=== PATIENT | female | born 1950 | race Caucasian/White ===

== ENCOUNTER 2017-03-03 08:53 | Outpatient (CLI) | payer BC | END 2017-03-03 08:54 | disposition home or self-care (01) | LOC: BICMAMMO 08:53 | PROVIDERS: ATTEND Family Medicine | DX: Z12.31 Encounter for screening mammogram for malignant neoplasm of breast (principal); Z80.3 Family history of malignant neoplasm of breast; R92.1 Mammographic calcification found on diagnostic imaging of breast | CPT/HCPCS: 77063 ==

== ENCOUNTER 2017-08-05 21:28 | Emergency (ER) | payer MEDICARE, BC ==
[2017-08-05 22:06] LABS: #Eosinphils 0.1 thou/uL (0.0-0.7); #Lymphocytes 0.4 thou/uL (1.20-3.40); #Monocytes 0.3 thou/uL (0.11-0.59); #Neutrophils 6.1 thou/uL (1.40-6.50); %Basophils 0.7 % (0.0-1.0); %Lymphocytes 5.2 % (21.0-51.0); %Monocytes 4.8 % (0.0-10.0); %Neutrophils 88.3 % (42.0-75.0); Hemoglobin 12.6 g/dL (12.0-16.0); Mean Corpuscular HGB CONC 35.7 g/dL (32.0-36.0); Mean Corpuscular Hemoglobin 29.9 pg (27.0-31.0); Mean Corpuscular Volume 83.6 fl (81.0-99.0); Mean Platelet Volume 8.1 fL (7.4-10.4); Platelet Count 128 thou/uL (130-400); RBC Distribution Width 11.1 % (11.5-14.5); Red Blood Cell (RBC) Count 4.21 mill/uL (4.20-5.40)
[2017-08-05 22:20] LABS: Bilirubin Negative (Negative); Blood, Urine Negative (Negative); Clarity Turbid (Clear); Glucose, Urine (Dipstick) 100 mg/dL (Negative); Leukocyte Moderate (Negative); Nitrite Positive (Negative); Protein, Urine (Dipstick) Negative (Neg-Trace); Urobilinogen 0.2 mg/dL (0.2-1.0); pH, Urine 5.5 (5.0-9.0)
[2017-08-05 22:21] LABS: ALT (SGPT) 31 U/L (8-55); AST (SGOT) 25 U/L (5-34); Albumin 4.2 g/dL (3.4-4.8); Alkaline Phosphatase 77 U/L (40-150); Anion Gap 16 mmol/L (10-20); BUN (Urea Nitrogen) 26 mg/dL (9.8-20.1); Bilirubin, Total 0.5 mg/dL (0.2-1.2); Calc. Creatinine Clearance 0 mL/min (70-130); Calcium 9.3 mg/dL (7.8-10.44); Carbon Dioxide 21 mmol/L (23-31); Chloride 104 mmol/L (98-107); Estimated GFR-MDRD 61; Globulin 2.7 g/dL (2.4-3.5); Glucose 234 mg/dL (80-115); Lipase 20 U/L (8-78); Potassium 3.5 mmol/L (3.5-5.1); Protein, Total 6.9 g/dL (6.0-8.3); Sodium 137 mmol/L (136-145)
--- NOTE | 2017-08-05 22:25 | CT ---
CT ABDOMEN AND PELVIS WITHOUT CONTRAST: 08/05/17 HISTORY: Nausea and vomiting. COMPARISON: None. FINDINGS: The lung bases are clear. No pericardial effusion. Prior cholecystectomy. Small phleboliths in the pelvis. No nephroureterolithiasis or hydroureteroneph rosis. No secondary evidence of recently passed stone. There is a nodule in the left adrenal gland measuring less than 0 Hounsfield units suggesting adenom a. Noncontrast evaluation of the liver, spleen, pancreas are unremarkable. No dilated loops of large or small bowel. The appendix is visualized and is normal. Mild diverticular disease sigmoid colon without active inflammation. Advanced degenerative changes L5 -S1, L4-5 as well as L2-3. 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 Moderate degenerative disease pubic symphysis. IMPRESSION: 1. No nephroureterolithiasis or hydroureteronephrosis. No secondary evidence of recently passed stone. 2. No acute inflammatory process within the abdomen or pelvis. POS: [facility]
[2017-08-05 22:30] LABS: Bacteria/HPF 4+ HPF (None Seen); Hyaline Casts/LPF NONE SEEN LPF (0-3 Hyaline); RBC/HPF 0-3 HPF (0-3); Squamous Epithelial 0-3 HPF (0-3)
[2017-08-05] MEDS ORDERED: cefTRIAXone\\ROCEPHIN 1 GM VIAL ONE (22:43)
[2017-08-05] MEDS ORDERED: Sodium Chloride 0.9% 100 ML ONE (22:43)
== END 2017-08-05 23:40 | disposition home or self-care (01) ==
LOC: SCSER 21:28
DX: N39.0 Urinary tract infection, site not specified (principal); R19.7 Diarrhea, unspecified; R11.2 Nausea with vomiting, unspecified; E11.40 Type 2 diabetes mellitus with diabetic neuropathy, unspecified; E03.9 Hypothyroidism, unspecified; K21.9 Gastro-esophageal reflux disease without esophagitis; Z79.4 Long term (current) use of insulin; Z79.899 Other long term (current) drug therapy
CPT/HCPCS: 36415; 74176; 80053; 81003; 81015; 83605; 83690; 85025; 87077; 87086; 87186; 96365; J0696; J7050

== ENCOUNTER 2018-02-15 23:08 | Observation (INO) | payer MEDICARE, BC ==
[2018-02-15 23:49] LABS: #Basophils 0.1 thou/uL (0.0-0.2); #Eosinphils 0.1 thou/uL (0.0-0.7); #Lymphocytes 1.9 thou/uL (1.20-3.40); #Monocytes 0.7 thou/uL (0.11-0.59); #Neutrophils 3.7 thou/uL (1.40-6.50); %Basophils 1.8 % (0.0-1.0); %Lymphocytes 29.2 % (21.0-51.0); %Monocytes 10.6 % (0.0-10.0); %Neutrophils 56.4 % (42.0-75.0); Hemoglobin 11.6 g/dL (12.0-16.0); Mean Corpuscular HGB CONC 34.9 g/dL (32.0-36.0); Mean Corpuscular Hemoglobin 29.1 pg (27.0-31.0); Mean Corpuscular Volume 83.4 fL (78.0-98.0); Mean Platelet Volume 7.6 fL (7.4-10.4); Platelet Count 167 thou/uL (130-400); Red Blood Cell (RBC) Count 3.98 mill/uL (4.20-5.40); White Blood Cell (WBC) Count 6.6 thou/uL (4.8-10.8)
--- NOTE | 2018-02-15 23:52 | CT ---
HEAD CT WITHOUT CONTRAST: History: Left leg paresthesia that started 2.5 hours ago. Cramping in the left calf. Comparison: None. FINDINGS: No parenchymal hemorrhage. No extraaxial hematoma. No midline shift. Basilar cisterns are patent. Bra in volume is age appropriate. Cortical rider white matter differentiation is preserved. No evidence of hydrocephalus. Adequate aeration of the sinuses and mastoid air cells. Calvarium is intact. IMPRESSION: No acute intracranial process. POS: [facility]
[2018-02-16 00:02] LABS: ALT (SGPT) 24 U/L (8-55); AST (SGOT) 22 U/L (5-34); Albumin 4.4 g/dL (3.4-4.8); Alkaline Phosphatase 71 U/L (40-150); Anion Gap 13 mmol/L (10-20); BUN (Urea Nitrogen) 21 mg/dL (9.8-20.1); Bilirubin, Total 0.3 mg/dL (0.2-1.2); Calc. Creatinine Clearance 0 mL/min (70-130); Calcium 9.4 mg/dL (7.8-10.44); Carbon Dioxide 25 mmol/L (23-31); Chloride 105 mmol/L (98-107); Estimated GFR-MDRD 55; Globulin 2.6 g/dL (2.4-3.5); Glucose 136 mg/dL (80-115); Potassium 3.3 mmol/L (3.5-5.1); Sodium 140 mmol/L (136-145)
[2018-02-16 00:05] LABS: CKMB 3.9 ng/mL (0-6.6); Troponin I Less than 0.010 ng/mL (< 0.028)
[2018-02-16] MEDS ORDERED: Potassium Chloride 20 MEQ TAB ONE (00:09)
[2018-02-16] MEDS ORDERED: Aspirin 325 MG TAB ONE (00:09)
--- NOTE | 2018-02-16 02:18 | PDOC.FPRHP ---
- History of Present Illness Chief Complaint: left leg pain History of Present Illness: This is a 67 yo F who is a direct admit from [facility] ER with a CC of left calf pain that started last night around around 2129. Patient is being directly admitted for a CVA assessment. Patient reports that the pain was crampy in character and went away. The patient then had weakness that started at the LLE and extended to the LUE. Patient states that her left leg feels weaker than her right. Patient states that this feeling has persisted and is still present. Patient denies tingling, numbness, slurred speech, change in gait. Patient states she has been having pain in her ankles due to arthritis and has been seeing a dye reel operator helper. Patient states she had a steroid injection in the left ankle 2 weeks ago for ankle pain. Patient also endorses that she has had increased stress due to Thanksgiving and was on her feet more than usual. Patient denies NVD, fever, chills, chest pain, or abdominal pain. ED Course: Patient given ASA and K-dur - Allergies/Adverse Reactions Allergies Allergy/AdvReac Type Severity Reaction Status Date / Time No Known Allergies Allergy Verified 02/16/18 03:14 - Home Medications Medication Instructions Recorded Confirmed Type Aspirin 1 tab PO DAILY 02/16/18 02/16/18 History Atorvastatin Calcium 1 tab PO HS 02/16/18 02/16/18 History Esomeprazole Magnesium [NexIUM 1 tab PO DAILY 02/16/18 02/16/18 History Oral Suspension] Insulin Glargine,Hum.Rec.Anlog 76 units SC HS 02/16/18 02/16/18 History [Lantus] Levothyroxine [Synthroid] 125 mcg PO DAILY 02/16/18 02/16/18 History Losartan/Hydrochlorothiazide 1 tab PO DAILY 02/16/18 02/16/18 History [Losartan-Hctz 100-25 mg Tab] Magnesium Chloride [Slow-Mag] 2 tab PO DAILY 02/16/18 02/16/18 History metFORMIN [Glucophage] 1 tab PO BID 02/16/18 02/16/18 History sitaGLIPtin Phosphate [Januvia] 1 tab PO DAILY 02/16/18 02/16/18 History - History PMHx: DM, HTN, HLD, Hypothyroidism, GERD, arthritis PSHx: hysterectomy, cholecystectomy FHx: mom, siblings - DM, father - from pancreatic cancer Social: denies tobacco or drug use; drinks 3-4 glasses of wine/week - Review of Systems General: denies: fever/chills, weight/appetite/sleep changes, night sweats, fatigue Eyes: denies: eye pain, vision changes ENT: denies: nasal congestion, rhinorrhea Respiratory: denies: cough, congestion, shortness of breath Cardiovascular: denies: chest pain, palpitation, edema Gastrointestinal: denies: nausea, vomiting, diarrhea, constipation, abdominal pain Genitourinary: denies: dysuria Skin: denies: rashes, lesions Musculoskeletal: reports: pain, arthritis/arthralgias. denies: swelling Neurological: reports: weakness - Vital signs BP: 144/74 HR: 83 RR: 17 Tmax: 98.2 Pox: 99% on RA Wt: 86kg - Physical Exam Constitutional: NAD, awake, alert and oriented, well developed HEENT: normocephalic and atraumatic, PERRLA, EOMI, conjunctiva clear, no scleral icterus, grossly normal vision, grossly normal hearing, MMM Neck: supple, FROM, trachea midline Chest: no-tender to palpation, no lesions Heart: RRR, normal S1/S2, no murmurs/rubs/gallops, pulses present, no edema Lungs: CTAB, no respiratory distress, good air movement, no wheezing Abdomen: soft, non-tender, bowel sounds present, no masses/distention Musculoskeletal: normal structure, normal tone, ROM grossly normal Neurological: no focal deficit, CN II-XII intact, normal sensation -Neurological: strength 5/5 in all extremities, sensation intact in all extremities- to touch and pin prick Skin: no rash/lesions, good turgor, capillary refill <2 seconds Psychiatric: normal mood and affect, good judgment and insight, intact recent and remote memory FMR H&P: Results - Labs Result Diagrams: 02/16/18 03:40 02/16/18 03:40 Lab results: WBC 6.6 thou/uL (4.8-10.8) 02/15/18 23:40 Hgb 11.6 g/dL (12.0-16.0) L 02/15/18 23:40 Hct 33.2 % (36.0-47.0) L 02/15/18 23:40 MCV 83.4 fL (78.0-98.0) 02/15/18 23:40 Plt Count 167 thou/uL (130-400) 02/15/18 23:40 Neutrophils % 56.4 % (42.0-75.0) 02/15/18 23:40 Sodium 140 mmol/L (136-145) 02/15/18 23:40 Potassium 3.3 mmol/L (3.5-5.1) L 02/15/18 23:40 Chloride 105 mmol/L (98-107) 02/15/18 23:40 Carbon Dioxide 25 mmol/L (23-31) 02/15/18 23:40 BUN 21 mg/dL (9.8-20.1) H 02/15/18 23:40 Creatinine 1.01 mg/dL (0.6-1.1) 02/15/18 23:40 Glucose 136 mg/dL (80-115) H 02/15/18 23:40 Calcium 9.4 mg/dL (7.8-10.44) 02/15/18 23:40 Total Bilirubin 0.3 mg/dL (0.2-1.2) 02/15/18 23:40 AST 22 U/L (5-34) 02/15/18 23:40 ALT 24 U/L (8-55) 02/15/18 23:40 Alkaline Phosphatase 71 U/L (40-150) 02/15/18 23:40 CK-MB (CK-2) 3.9 ng/mL (0-6.6) 02/15/18 23:40 Serum Total Protein 7.0 g/dL (6.0-8.3) 02/15/18 23:40 Albumin 4.4 g/dL (3.4-4.8) 02/15/18 23:40 - Radiology Interpretation CT scan - head Status: report reviewed by me (no acute intracranial process) FMR H&P: A/P - Problem List (1) Hypertension Current Visit: Yes Status: Acute Code(s): I10 - ESSENTIAL (PRIMARY) HYPERTENSION (2) Hyperlipidemia Current Visit: Yes Status: Acute Code(s): E78.5 - HYPERLIPIDEMIA, UNSPECIFIED (3) Diabetes Current Visit: Yes Status: Acute Code(s): E11.9 - TYPE 2 DIABETES MELLITUS WITHOUT COMPLICATIONS (4) Paresthesia and pain of left extremity Current Visit: Yes Status: Acute Code(s): M79.609 - PAIN IN UNSPECIFIED LIMB ; R20.2 - PARESTHESIA OF SKIN (5) Hypokalemia Current Visit: Yes Status: Acute Code(s): E87.6 - HYPOKALEMIA - Plan Left Lower Extremity Weakness - CVA vs TIA r/o; multiple risk factors including DM, HTN, HLD - stroke score 1 - CT neg for acute process - will obtain MRI, Echo, and carotid dopplers - Lipid panel pending - D-Dimer pending - consult stroke team Hypokalemia - K 3.3 - Will replace as needed - Monitor w/ daily BMPs Hx of DM - aware, continue home meds - Mild SS, ACHS accuchecks - will obtain A1C Hx of HTN - aware, continue home meds - monitor BPs Hx of HLD - aware, continue home meds - can consider mod intensity statin - Lipid panel pending DISPO: admit for stroke obs CODE: FULL VTE: SCDs FMR H&P: Upper Level - Pertinent history Vijaya Tobin is a 67 year old female with a past medical history of DM, HLD, HTN who was transferred and direct admitted from [facility] due to concern for TIA/ CVA . Pt cleaning her house at about 2100 when she suddenly noted LLE cramping that extended from her foot up to her calf followed up LLE weakness. She denies fall or foot drop. She denies any dysarthria, facial droop, or parasthesias. Pt was found to have a NIH score of 1 at the outside ER so TPA was not adminstered. - Pertinent findings Exam General: alert and oriented; in no apparent distress. HEENT: normocephalic atraumatic. PEERL, no nystagmus. Neuro: CN II-XII intact grossly; no focal or sensory deficits; strength 5/5 throughout. Extremities: no peripheral edema; no palpable, tender cords. Noncontrast CT brain: negative for acute intracranial pathology - Plan Date/Time: 02/16/18 0213 I, Wilda Shukla, have evaluated this patient and agree with findings/plan as outlined by internet sales manager resident. Pertinent changes/additions are listed here. TIA/CVA rule out - pt direct admitted to stroke for observation. - Pt's story/exam does not sound completely convincinvg for TIA/CVA, nevertheless she has multiple risk factors including age, diabetes, hypertension. - will pursue full workup to include: MRI of brain without contrast, Echo, carotid dopplers - risk stratification with A1C, FLP, - will consult stroke team - Daily aspirin. Hypokalemia - K 3.3. s/p replacement at outside ER. - will repeat BMP in AM Diabetes mellitus - resume home meds - AC/HS accuchecks. Hypertension - resume home meds Hyperlipidemia - resume home meds Osteoarthritis - resume home meds. Attending Addendum - Attending Addendum Date/Time: 02/16/18 1019 I personally evaluated the patient and discussed the management with Dr. Bunch this morning. I agree with the History, Examination, Assessment and Plan documented above with any addition or exceptions noted below. Patient has a NIH stroke scale score of 0 at my exam. Has significant risk factors for CVA. Workup ongoing today.
[2018-02-16 03:00] VITALS: BMI 30.9
[2018-02-16] MEDS ORDERED: Ondansetron PF 4 MG/2 ML Vial IVP PRN (03:19)
[2018-02-16] MEDS ORDERED: Ondansetron ODT 4 MG TAB PO PRN (03:19)
[2018-02-16] MEDS ORDERED: Acetaminophen 325 MG TAB PO PRN (03:19)
[2018-02-16] MEDS ORDERED: HumaLOG 300 UNITS/3 ML VIAL SC PRN (03:28)
[2018-02-16] MEDS ORDERED: Dextrose 50% Abboject 50 ML SYRINGE SLOW IVP PRN (03:28)
[2018-02-16] MEDS ORDERED: Dextrose 5% in Water 1,000 ML IV PRN (03:28)
[2018-02-16 04:45] LABS: Hemoglobin A1c 5.4 % (4.0-6.0)
[2018-02-16 05:14] LABS: Anion Gap 10 mmol/L (10-20); BUN (Urea Nitrogen) 19 mg/dL (9.8-20.1); Calc. Creatinine Clearance 91 mL/min (70-130); Calcium 8.8 mg/dL (7.8-10.44); Carbon Dioxide 25 mmol/L (23-31); Cardiac Risk 2.3 (Less than 4.5); Chloride 109 mmol/L (98-107); Cholesterol 138 mg/dl (< 200 Desired); Estimated GFR-MDRD 70; Glucose 68 mg/dL (80-115); HDL Cholesterol 61 mg/dL (>60 Neg Risk); LDL Cholesterol, Calculated 66 mg/dL; Potassium 3.4 mmol/L (3.5-5.1); Sodium 141 mmol/L (136-145); Triglycerides 57 mg/dL (Less than 150)
[2018-02-16 05:34] LABS: #Basophils 0.1 thou/uL (0.0-0.2); #Eosinphils 0.1 thou/uL (0.0-0.7); #Lymphocytes 2.1 thou/uL (1.20-3.40); #Monocytes 0.6 thou/uL (0.11-0.59); #Neutrophils 2.7 thou/uL (1.40-6.50); %Basophils 1.6 % (0.0-1.0); %Eosinophils 2.5 % (0.0-10.0); %Lymphocytes 36.8 % (21.0-51.0); %Monocytes 10.7 % (0.0-10.0); %Neutrophils 48.4 % (42.0-75.0); Hemoglobin 10.8 g/dL (12.0-16.0); Mean Corpuscular HGB CONC 34.2 g/dL (32.0-36.0); Mean Corpuscular Hemoglobin 30.2 pg (27.0-31.0); Mean Corpuscular Volume 88.5 fL (78.0-98.0); Mean Platelet Volume 8.3 fL (7.4-10.4); Platelet Count 176 thou/uL (130-400); RBC Distribution Width 12.4 % (11.5-14.5); Red Blood Cell (RBC) Count 3.58 mill/uL (4.20-5.40); White Blood Cell (WBC) Count 5.6 thou/uL (4.8-10.8)
[2018-02-16] MEDS ORDERED: metFORMIN 500 MG TAB PO SCH (08:00)
[2018-02-16] MEDS ORDERED: Alogliptin 25 MG TAB PO SCH (09:00)
[2018-02-16] MEDS ORDERED: Losartan/Hydrochlorothiazide 100 mg/25 mg Tablet PO SCH (09:00)
--- NOTE | 2018-02-16 11:21 | ULT ---
CAROTID ULTRASOUND WITH GURROLA SCALE AND DOPPLER DUPLEX COLOR FLOW IMAGING SPECTRAL ANALYSIS PERFORMED: DATE: 02/16/18 CLINICAL INDICATION: TIA, CVA, left extremity paresthesias. FINDINGS: There is mild intimal thickening/plaque formation of the carotid arteries. PEAK SYSTOLIC VELOCITY (CM/S): Right CCA 93 Left CCA 116 Right ICA 71 Left ICA 73 There is antegrade flow within the visualized bilateral vertebral arteries. IMPRESSION: 1. No hemodynamically significant stenosis of the right internal carotid artery. 2. No hemodynamically significant stenosis of the left internal carotid artery. POS: [facility]
[2018-02-16] MEDS ORDERED: Potassium Chloride 20 MEQ TAB PO SCH (11:45)
[2018-02-16] MEDS: Magnesium Chloride 64 MG TAB PO SCH ×2 (12:17→13:27)
[2018-02-16 12:26] VITALS: TEMP 97.8
--- NOTE | 2018-02-16 13:16 | MRI ---
MRI BRAIN NONCONTRAST: HISTORY: Paresthesias. FINDINGS: There is no acute territorial infarction, intracranial mass effect, or midline shift. No hemorrhagic susceptibility is seen intracranially. There is minimal chronic ischemic disease. The imaged skull base flow voids are patent. IMPRESSION: 1. No acute territorial infarction. 2. Minimal chronic ischemic disease. POS: [facility]
[2018-02-16 16:41] VITALS: BP 157/68
[2018-02-16] MEDS ORDERED: INSULIN GLARGINE SC SCH (21:00)
[2018-02-16] MEDS ORDERED: PRE FILLED SC SCH (21:00)
[2018-02-16] MEDS ORDERED: Atorvastatin Calcium 10 MG TAB PO SCH (21:00)
--- NOTE | 2018-02-17 14:54 | DIS ---
DATE OF ADMISSION: 02/16/2018 DATE OF DISCHARGE: 02/16/2018 RESIDENT: Breanna Bunch MD ADMITTING ATTENDING: Paras Cole MD DISCHARGE ATTENDING: Paras Cole MD CONSULTS: None. PROCEDURES: 1. On 02/15/2018, brain CT showed no acute intracranial process. 2. On 02/16/2018, brain MRI showed no acute territorial infarction. Minimal chronic ischemic disease. 3. On 02/16/2018, carotid Doppler study showed no hemodynamically significant stenosis of the right or left internal carotid arteries. 4. On 02/16/2018, echocardiogram showed left ventricular ejection fraction estimated at 55% to 60%, E/A flow reversal noted suggestive of diastolic dysfunction, mild mitral regurgitation present, mild tricuspid regurgitation, left atrium [id number] dilated. PRIMARY DIAGNOSES: 1. Left lower extremity weakness and transient ischemic attack, rule out. 2. Hypokalemia. SECONDARY DIAGNOSES: 1. Diabetes mellitus. 2. Hypertension. 3. Hyperlipidemia. 4. Osteoarthritis. DISCHARGE MEDICATIONS: 1. Metformin 500 mg one tablet p.o. b.i.d. 2. Magnesium chloride two tablets p.o. daily. 3. Aspirin 81 mg one tablet p.o. daily. 4. Losartan-hydrochlorothiazide 100-25 mg tablet one tablet p.o. daily. 5. Nexium 40 mg suspension packet one tablet p.o. daily. 6. Insulin glargine 76 units subcu nightly. 7. Atorvastatin 10 mg p.o. nightly. 8. Januvia 100 mg 1 tablet p.o. daily. 9. Synthroid 125 mcg p.o. daily. HISTORY OF PRESENT ILLNESS: A 67-year-old female, who was a direct admit from [facility] ER with chief complaint of left calf pain that started earlier that evening. She was directly admitted for a CVA assessment. The patient reported that the pain was crampy in character and went away. She has weakness in her left leg more than right, which was still present at the time of presentation. She denied tingling, numbness, slurred speech, or change in gait. The patient also endorses that she had increased stress due to Thanksgiving and was on her feet more than usual. NIH score of 1 at outside ER. The patient was directly admitted for a CVA/TIA rule out. Stroke score of 1. CT, MRI, and carotid Dopplers were all negative. Hypokalemia of 3.3 was replaced. Additional labs to note are hemoglobin of 10.8 at the time of discharge, MCV 88.5, potassium 3.4, A1c 5.4, triglycerides 57, cholesterol 138, LDL 66, HDL 61. The patient underwent all tests, which were negative and ruled out TIA. The patient was stable for discharge home. DISPOSITION: Stable. DISCHARGE INSTRUCTIONS: LOCATION: Home. DIET: Heart healthy. ACTIVITY: No restrictions. FOLLOWUP: Follow up with PCP in 7 days. Job ID: [id number] [facility] HOSPITALMaximino
== END 2018-02-16 15:15 | disposition home or self-care (01) ==
LOC: SCSER 23:08 → 2SW 02-16 00:25
PROVIDERS: ADMIT Emergency Medicine; ATTEND Emergency Medicine
DX: R29.898 Other symptoms and signs involving the musculoskeletal system (principal); M79.662 Pain in left lower leg; E11.9 Type 2 diabetes mellitus without complications; E03.9 Hypothyroidism, unspecified; I10 Essential (primary) hypertension; K21.9 Gastro-esophageal reflux disease without esophagitis; M19.90 Unspecified osteoarthritis, unspecified site; R20.2 Paresthesia of skin; E87.6 Hypokalemia; Z79.4 Long term (current) use of insulin; Z79.82 Long term (current) use of aspirin; Z79.899 Other long term (current) drug therapy
CPT/HCPCS: 70450; 70551; 80048; 80053; 80061; 82553; 82962 ×2; 83036; 83735; 84484; 85025 ×2; 93005; 93306; 93880; 97139 ×4; 99285; G0378 ×2; G8978; G8979; G8980; G8987; G8988; G8989; 36415; 36416; G8996-GN-CH; G8997-GN-CH

== ENCOUNTER 2018-03-04 09:19 | Outpatient (CLI) | payer MEDICARE, BC | END 2018-03-04 09:20 | disposition home or self-care (01) | LOC: BICMAMMO 09:19 | PROVIDERS: ATTEND Family Medicine | DX: Z12.31 Encounter for screening mammogram for malignant neoplasm of breast (principal); R92.1 Mammographic calcification found on diagnostic imaging of breast; Z80.3 Family history of malignant neoplasm of breast | CPT/HCPCS: 77063; 77067 ==

== ENCOUNTER 2019-06-04 09:02 | Outpatient (CLI) | payer MEDICARE, BC ==
--- NOTE | 2019-06-04 09:52 | MMO ---
Bilateral MAMMO Bilat Screen DDI+BHAVIN. CLINICAL HISTORY: Patient is 69 years old and is seen for screening. The patient has the following family history of breast cancer: mother, at age 65, malignant (generic). The patient has no personal history of cancer. The patient has a history of right Excisional Biopsy in 1994 - fibroadenoma, left Excisional Biopsy in 1980 - fibroadenoma, bilateral Excisional Biopsy in 1981 - fibroadenoma and bilateral Excisional Biopsy in 1971 - fibroadenoma. VIEWS: The views performed were: bilateral craniocaudal with tomosynthesis; bilateral mediolateral oblique with tomosynthesis; and cleavage view. FILMS COMPARED: The present examination has been compared to prior imaging studies performed at [facility] on 01/11/2015, 02/29/2016, 03/03/2017 and 03/04/2018. This study has been interpreted with the assistance of computer-aided detection. MAMMOGRAM FINDINGS: There are scattered fibroglandular densities. Benign calcifications are noted bilaterally. There is a nodular density in the right upper outer breast best seen on CC view. In the left breast, there are no suspicious masses, calcifications or areas of architectural distortion. IMPRESSION: FINDING IN THE RIGHT BREAST REQUIRES ADDITIONAL EVALUATION. SPOT COMPRESSION IS RECOMMENDED. AN ULTRASOUND EXAM IS RECOMMENDED. ADDITIONAL IMAGING. THE RESULTS OF THIS EXAM WERE SENT TO THE PATIENT. ACR BI-RADS Category 0 - Incomplete: Need additional imaging evaluation. [facility] will notify the patient of the need for additional imaging services. MAMMOGRAPHY NOTE: 1. A negative mammogram report should not delay a biopsy if a dominant of clinically suspicious mass is present. 2. Approximately 10% to 15% of breast cancers are not detected by mammography. 3. Adenosis and dense breasts may obscure an underlying neoplasm. Reported by: SYMONE DIGGS MD Electonically Signed: [id number]
== END 2019-06-04 09:03 | disposition home or self-care (01) ==
LOC: BICMAMMO 09:02
PROVIDERS: ATTEND Family Medicine
DX: Z12.31 Encounter for screening mammogram for malignant neoplasm of breast (principal); Z80.3 Family history of malignant neoplasm of breast; Z91.89 Other specified personal risk factors, not elsewhere classified
CPT/HCPCS: 77063; 77067

== ENCOUNTER 2019-06-08 13:30 | Outpatient (CLI) | payer MEDICARE, BC ==
--- NOTE | 2019-06-08 14:54 | MMO ---
Right Breast MAMMO Unilat Diag DDI RT+BHAVIN. CLINICAL HISTORY: Patient is 69 years old and is seen for additional evaluation requested from prior study. The patient has the following family history of breast cancer: mother, at age 65, malignant (generic). The patient has no personal history of cancer. The patient has a history of right Excisional Biopsy in 1994 - fibroadenoma, left Excisional Biopsy in 1980 - fibroadenoma, bilateral Excisional Biopsy in 1981 - fibroadenoma and bilateral Excisional Biopsy in 1971 - fibroadenoma. VIEWS: The views performed were: right craniocaudal spot compression with tomosynthesis; right mediolateral oblique spot compression with tomosynthesis; and right mediolateral with tomosynthesis. FILMS COMPARED: The present examination has been compared to prior imaging studies performed at [facility] on 02/29/2016, 03/03/2017, 03/04/2018 and 06/04/2019. This study has been interpreted with the assistance of computer-aided detection. MAMMOGRAM FINDINGS: There are scattered fibroglandular densities. There are stable calcifications seen in the right breast. The area of concern on recent screening mammogram is noted superior and lateral to the nipple. On today's diagnostic mammography, an asymmetric density is noted which appears unchanged in comparison to many prior studies dating back to 2015. There are no suspicious masses, suspicious calcifications, or new areas of architectural distortion. IMPRESSION: THERE IS NO MAMMOGRAPHIC EVIDENCE OF MALIGNANCY. A ROUTINE FOLLOW-UP MAMMOGRAM IN 1 YEAR IS RECOMMENDED. THE RESULTS OF THIS EXAM WERE SENT TO THE PATIENT. ACR BI-RADS Category 2 - Benign finding MAMMOGRAPHY NOTE: 1. A negative mammogram report should not delay a biopsy if a dominant of clinically suspicious mass is present. 2. Approximately 10% to 15% of breast cancers are not detected by mammography. 3. Adenosis and dense breasts may obscure an underlying neoplasm. Reported by: MICHELL SALAZAR MD Electonically Signed: [id number]
== END 2019-06-08 13:31 | disposition home or self-care (01) ==
LOC: BICMAMMO 13:30
PROVIDERS: ATTEND Family Medicine
DX: R92.2 Inconclusive mammogram (principal)
CPT/HCPCS: 77065; G0279

== ENCOUNTER 2020-04-12 14:44 | Outpatient (CLI) | payer MEDICARE, BC ==
--- NOTE | 2020-04-12 15:17 | RAD ---
RIGHT FOOT: 04/12/20 Three views. HISTORY: Injury and pain right foot. There is a pes planus noted in the lateral view. There are degenerative changes seen in the intertars al joints and at the tarsometatarsal joints. Subarticular cystic changes and erosive changes are prom inent a the first tarsometatarsal joint. There is evidence of a fracture involving the base of the proximal phalanx of the great toe along its medial margin. No displacement. MTP and IP joints unremarkable. No other evidence of fracture. IMPRESSION: 1. Evidence of acute nondisplaced fracture involving the base of the proximal phalanx of the gre at toe along its medial margin. This appears to involve the articular surface along the medial corner of this proximal phalanx. 2. There are degenerative changes especially prominent in the intertarsal joints and the tarsome tatarsal joints as described. POS: [facility]
== END 2020-04-12 14:45 | disposition home or self-care (01) ==
LOC: BICRAD 14:44
PROVIDERS: ATTEND Family Medicine
DX: S99.921A Unspecified injury of right foot, initial encounter (principal); S92.414A Nondisplaced fracture of proximal phalanx of right great toe, initial encounter for closed fracture; M19.071 Primary osteoarthritis, right ankle and foot

== ENCOUNTER 2020-06-08 08:49 | Outpatient (CLI) | payer MEDICARE, BC | END 2020-06-08 08:50 | disposition home or self-care (01) | LOC: BICMAMMO 08:49 | PROVIDERS: ATTEND Family Medicine | DX: Z12.31 Encounter for screening mammogram for malignant neoplasm of breast (principal); Z80.3 Family history of malignant neoplasm of breast | CPT/HCPCS: 77063; 77067 ==